=== PATIENT | male | born 1950 | race American Indian/Alaskan Native ===

== ENCOUNTER 2017-11-27 17:05 | Emergency (ER) | payer MEDICARE ==
[2017-11-27 17:06] VITALS: BMI 20.2
--- NOTE | 2017-11-27 18:53 | CT ---
EXAM: CT Maxillofacial Without Intravenous Contrast EXAM DATE/TIME: Exam ordered 11/27/2017 5:33 PM CLINICAL HISTORY: 67 years old, male; Injury or trauma; Fall; Initial encounter; Blunt trauma (contusions or hematomas); Cheek bone; Left; Injury details: ETOH; Additional info: Intox/l cheek contusion, ? FX TECHNIQUE: Axial computed tomography images of the face without intravenous contrast. All CT scans at this facility use one or more dose reduction techniques, viz.: automated exposure control; ma/kV adjustment per patient size (including targeted exams where dose is matched to indication; i.e. head); or iterative reconstruction technique. Coronal and sagittal reformatted images were created and reviewed. COMPARISON: No relevant prior studies available. FINDINGS: Bones/joints: No acute fracture. Degenerative changes are noted within the cervical spine at C5-6 with disc space narrowing and marginal osteophyte formation. Soft tissues: An area of soft tissue swelling overlies the left maxilla extending over the zygoma. Orbits: Unremarkable. Sinuses: There is effacement of the left piriform sinus which may be related to inspissated secretions. Mucosal thickening is noted within the maxillary sinuses bilaterally No air-fluid levels. IMPRESSION: 1. Soft tissue swelling noted over the left maxilla and zygoma. No evidence of fracture. 2. Mild mucosal thickening noted within the maxillary sinuses bilaterally.
--- NOTE | 2017-11-27 19:01 | CT ---
EXAM: CT Head Without Intravenous Contrast EXAM DATE/TIME: Exam ordered 11/27/2017 5:33 PM CLINICAL HISTORY: 67 years old, male; Injury or trauma; Fall; Initial encounter; Blunt trauma (contusions or hematomas); Consciousness not specified; Injury date: N/a; Additional info: Intox, fell forward, l cheek/face TECHNIQUE: Axial computed tomography images of the head/brain without intravenous contrast. All CT scans at this facility use one or more dose reduction techniques, viz.: automated exposure control; ma/kV adjustment per patient size (including targeted exams where dose is matched to indication; i.e. head); or iterative reconstruction technique. Coronal and sagittal reformatted images were created and reviewed. COMPARISON: CT - HEAD W/O CONTRAST 2015-09-24 03:26 FINDINGS: Brain: There is calcification in the right basal ganglia.. No hemorrhage. No significant white matter disease. No edema. Ventricles: Unremarkable. No ventriculomegaly. Bones/joints: Unremarkable. No acute fracture. Soft tissues: Unremarkable. Sinuses: Unremarkable as visualized. No acute sinusitis. Mastoid air cells: Unremarkable as visualized. No mastoid effusion. IMPRESSION: Normal head/brain CT.
--- NOTE | 2017-11-27 19:32 | C.PDOC ---
History Of Present Illness 67 y/o male presents to the ED with a facial contusion. Patient was drinking with family when he fell hitting the left side of his cheek. Denies any head injury. PMD:None provided Time Seen by Provider: 11/27/17 17:29 Chief Complaint (Nursing): Substance Abuse History Per: Patient History/Exam Limitations: intoxication Onset/Duration Of Symptoms: Hrs Current Symptoms Are (Timing): Still Present Recent travel outside of the [place]: No Past Medical History Vital Signs: Last Vital Signs Temp 98.4 F 11/27/17 19:42 Pulse 68 11/27/17 19:42 Resp 18 11/27/17 19:42 BP 120/78 11/27/17 19:42 Pulse Ox 98 11/27/17 19:42 - Medical History PMH: Anemia, Fractures (left hip 20 years ago), HIV, HTN, Chronic Kidney Disease (ESRD) Surgical History: Endoscopy - [facility] Procedures ATTACH PEDICLE GRAFT NEC (09/17/14) CLOSED ENDOSCOPIC BIOPSY OF LARGE INTESTINE (04/04/15) DIALYSIS ARTERIOVENOSTOM (02/26/15) ESOPHAGOGASTRODUODENOSCOPY [EGD] W/CLOSED BIOPSY (04/04/15) HEMODIALYSIS (04/04/15) LOCAL EXCIS BREAST LES (09/17/14) OTHER SKIN & SUBQ I D (07/12/14) PACKED CELL TRANSFUSION (04/04/15) [facility] (02/26/15) SERUM TRANSFUSION NEC (04/04/15) VENOUS CATHETERIZATION FOR RENAL DIALYSIS (02/26/15) Family History: States: Unknown Family Hx - Social History Hx Tobacco Use: Yes Hx Alcohol Use: Yes (Daily use of alcohol) Hx Substance Use: Yes (??? unknow substance) - Immunization History Hx Tetanus Toxoid Vaccination: No Hx Influenza Vaccination: Yes Hx Pneumococcal Vaccination: No Review Of Systems Skin: Positive for: Other (facial contusion) Neurological: Positive for: Other (EtOH) Physical Exam - Physical Exam Appears: No Acute Distress Skin: Normal Color, Warm, Dry, Other (contusion of swelling to left cheek) Head: Atraumatic, Normacephalic, No Other (no head injury) Eye(s): bilateral: Normal Inspection, PERRL, EOMI Nose: Normal Neck: Normal, Normal ROM, Supple Cardiovascular: Rhythm Regular, No Murmur Respiratory: Normal Breath Sounds Gastrointestinal/Abdominal: Normal Exam Back: Normal Inspection, No CVA Tenderness, No Vertebral Tenderness Extremity: Normal ROM, No Pedal Edema, No Deformity Neurological/Psych: Oriented x3 ED Course And Treatment O2 Sat by Pulse Oximetry: 97 (RA) Pulse Ox Interpretation: Normal - CT Scan/US head and Max Face Other Rad Studies (CT/US): Interpreted By Me, Radiology Report Reviewed (no acute findings) Disposition Doctor Will See Patient In The: Office Counseled Patient/Family Regarding: Studies Performed, Diagnosis - Disposition Referrals: Alcoholics Anonymous [Outside] [facility] [Outside] [facility] [Outside] [facility] [Outside] Disposition: HOME/ ROUTINE Disposition Time: 19:32 Condition: GOOD Additional Instructions: CT of head and face are normal, no fractures nor brain injuries continue ice packs 1/2 hour per hour, nothing hot avoid alcohol abuse Seek AA as needed. Instructions: Minor Head Injury (DC), Alcohol Abuse and Alcoholism (DC) Forms: [facility] [facility] (Uzbek) - Clinical Impression Clinical Impression: Alcohol abuse, Facial contusion - Scribe Statement The provider has reviewed the documentation as recorded by the Scribe ( Jb Soni) All medical record entries made by the Scribe were at my direction and personally dictated by me. I have reviewed the chart and agree that the record accurately reflects my personal performance of the history, physical exam, medical decision making, and the department course for this patient. I have also personally directed, reviewed, and agree with the discharge instructions and disposition.
[2017-11-27 19:42] VITALS: BP 120/78; PULSE 68; RESP 18; TEMP 98.4
[2017-11-27 20:51] VITALS: O2SAT 97
== END 2017-11-27 19:43 | disposition home or self-care (01) ==
LOC: C.ER 17:05
DX: S00.83XA Contusion of other part of head, initial encounter (principal); W18.30XA Fall on same level, unspecified, initial encounter; F10.10 Alcohol abuse, uncomplicated; Y90.9 Presence of alcohol in blood, level not specified